=== PATIENT | male | born 2000 | race Caucasian/White ===

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

== ENCOUNTER 2021-12-26 12:41 | Emergency (ER) | payer OTHER ==
[~2021-12-26 12:41] MED LIST: CYCLOBENZAPRINE10 MG PO; IBUPROFEN800 MG PO; NORCO 5-325 TA1 EACH PO; SILVADENE20 GM TOP
[2021-12-26] MEDS ORDERED: CEPHALEXIN500 M1 PO (16:47)
== END 2021-12-26 16:57 | disposition home or self-care (01) ==
LOC: FER 12:41
DX: S61.412A Laceration without foreign body of left hand, initial encounter (principal); J45.909 Unspecified asthma, uncomplicated; Z28.310 Unvaccinated for COVID-19; Z79.899 Other long term (current) drug therapy; W45.8XXA Other foreign body or object entering through skin, initial encounter; Y92.830 Public park as the place of occurrence of the external cause
CPT/HCPCS: 73130